=== PATIENT | male | born 1995 | race Caucasian/White ===

== ENCOUNTER 2020-05-15 13:35 | Emergency (ER) | payer OTHER ==
[~2020-05-15] VITALS: Ht 172.7 cm; Wt 70.3 kg
--- OUTSIDE RECORDS SUMMARY | 2020-05-15 13:39 | XMS REPORT ---
Author Author [facility] [place] [facility] [place] Address [address] [address] Care Team Providers Care Invas Tech Name Role Phone ROGELIO, LAURA Chaparro Unavailable Allergies The data below is from unstructured sourcesNo allergy information available. Encounters No Information Medical Equipment No Information Goals No Information Immunizations The data below is from unstructured sourcesNo immunization records. Interventions No Information Medications The data below is from unstructured sourcesNo medication information available. Payers No Information Plan of Treatment The data below is from unstructured sources Prescriptions See Medication Section Problems The data below is from unstructured sourcesNo problem information available. Procedures The data below is from unstructured sourcesNo known history of procedures. Results The data below is from unstructured sourcesNo known relevant diagnostic tests, laboratory data and/or discharge summary. Social History No Information Vital Signs The data below is from unstructured sourcesNo known vital signs results. Functional Status The data below is from unstructured sourcesNo functional status results. Mental Status No Information Discharge Instructions No hospital discharge instructions. Additional Source Comments This clinical document has been generated using [employer] software that has been certified by the Office of the National Coordinator for Health Information Technology (ONC 15.99.04.3023.Diam.31.00.0.906283) and the National Committee for Template Clerk (NCQA, as an eMeasure certified technology). FOR RECORDS PERTAINING TO PATIENTS WHO ARE OR HAVE BEEN ENROLLED IN A CHEMICAL D EPENDENCY/SUBSTANCE ABUSE PROGRAM, SOME INFORMATION MAY BE OMITTED. This clinica l summary was aggregated from multiple sources. Caution should be exercised in using it in the provision of clinical care. This summary normalizes information from multiple sources, and as a consequence, information in this document may ma terially change the coding, format and clinical context of patient data. In saturnino tion, data may be omitted in some cases. CLINICAL DECISIONS SHOULD BE BASED ON T HE PRIMARY CLINICAL RECORDS. [facility], [facility]. provides no warranty or guara ntee of the accuracy or completeness of information in this document.The followi ng information is based on time limited clinical information
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
[2020-05-15 13:55] VITALS: BP 120/71
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
--- NOTE | 2020-05-15 14:21 | Diagnostic Imaging Report ---
EXAMINATION: Left knee radiographs, 3 views. COMPARISON: None. HISTORY: 24-year-old male, dislocation skateboarding. FINDINGS: The patella is currently normally positioned. There is no knee joint effusion. There is no identified acute fracture. There is no radiopaque foreign body. The joint spaces are well preserved. IMPRESSION: 1. No identified acute bony abnormality of the left knee. Dictated by: Dictated on workstation # [id number]
== END 2020-05-15 14:30 | disposition home or self-care (01) ==
LOC: EDUNIT# 13:35 → ER 13:36
DX: S83.015A Lateral dislocation of left patella, initial encounter (principal); V00.131A Fall from skateboard, initial encounter; Y93.51 Activity, roller skating (inline) and skateboarding
CPT/HCPCS: 73562